=== PATIENT | female | born 1945 | race Caucasian/White ===

== ENCOUNTER → 2018-08-09 | Outpatient (CLI) | payer MEDICARE, OTHER | END | disposition home or self-care (01) | LOC: LAB SHORT 10:34 → LAB 10:34 | DX: N39.0 Urinary tract infection, site not specified (principal) | CPT/HCPCS: 87086 ==

== ENCOUNTER → 2020-07-04 | Outpatient (CLI) | payer MEDICARE, OTHER ==
[2020-07-04 14:40] LABS: Source, Urine Clean Catch
[2020-07-04 15:46] LABS: Appearance, Urine Clear (Clear); Bilirubin, Urine Neg (Neg); Blood, Urine Neg (Neg); Color, Urine Yellow (P-Yellow); Glucose Qualitative, Urine Neg (Neg); Ketones, Urine Neg (Neg); Leukocyte Esterase, Urine Neg (Neg); Nitrite, Urine Neg (Neg); Protein, Urine Neg (Neg); Specific Gravity, Urine 1.005 (1.003-1.022); Urobilinogen, Urine NORM (Normal)
== END | disposition home or self-care (01) ==
LOC: LAB SHORT 14:15 → LAB 14:15
PROVIDERS: Registered Nurse
DX: R53.82 Chronic fatigue, unspecified (principal); R68.89 Other general symptoms and signs
CPT/HCPCS: 81003

== ENCOUNTER 2022-03-31 10:59 | Emergency (ER) | payer MEDICARE, OTHER ==
[~2022-03-31] VITALS: Ht 167.6 cm; Wt 90.7 kg
[2022-03-31] MEDS ORDERED: Norco 5-325 Ta1 EACH PO (13:05)
[2022-04-02] MEDS ORDERED: LORA10ER PO (13:42)
== END 2022-03-31 13:23 | disposition home or self-care (01) ==
LOC: ER 10:59
DX: S82.852A Displaced trimalleolar fracture of left lower leg, initial encounter for closed fracture (principal); W01.0XXA Fall on same level from slipping, tripping and stumbling without subsequent striking against object, initial encounter; Z87.891 Personal history of nicotine dependence
CPT/HCPCS: 73610

== ENCOUNTER 2023-01-10 09:55 | Day surgery (SDC) | payer MEDICARE, OTHER ==
[~2023-01-10] VITALS: Ht 170.2 cm; Wt 91.3 kg
[~2023-01-10 09:55] MED LIST: LORA10ER PO; Norco 5-325 Ta1 EACH PO
[2023-01-10 11:44] VITALS: BP 128/63
== END 2023-01-10 11:47 | disposition home or self-care (01) ==
LOC: ORSCSDS 09:55
PROVIDERS: Specialist
PROC: 0DBN8ZX Excision of Sigmoid Colon, Via Natural or Artificial Opening Endoscopic, Diagnostic (ICD-10-PCS; principal; 2023-01-10 11:00)
DX: R19.4 Change in bowel habit (principal); Z80.0 Family history of malignant neoplasm of digestive organs; D12.5 Benign neoplasm of sigmoid colon; K57.30 Diverticulosis of large intestine without perforation or abscess without bleeding; K64.8 Other hemorrhoids; E78.5 Hyperlipidemia, unspecified; I48.91 Unspecified atrial fibrillation; K64.4 Residual hemorrhoidal skin tags
CPT/HCPCS: 88305; J2704; J7120

== ENCOUNTER → 2023-09-12 | Outpatient (CLI) | payer OTHER ==
[~2023-09-12] MED LIST changes: +ACET500 PO
[2023-09-12 15:54] LABS: BASOPHILS ABSOLUTE AUTO 0.01 K/mm3 (0.00-0.23); BASOPHILS PERCENT AUTO 0 % (0-2); EOSINOPHILS ABSOLUTE AUTO 0.03 K/mm3 (0.00-0.68); EOSINOPHILS PERCENT AUTO 1 % (0-6); Hematocrit 21.7 % (33.0-51.0); Hemoglobin 7.4 g/dL (11.5-16.0); IMMATURE GRAN ABSOLUTE AUTO 0.01 K/mm3 (0.00-0.10); IMMATURE GRAN PERCENT AUTO 0 % (0-1); LYMPHOCYTES ABSOLUTE AUTO 0.66 K/mm3 (0.84-5.20); LYMPHOCYTES PERCENT AUTO 30 % (21-46); MONOCYTES ABSOLUTE AUTO 0.07 K/mm3 (0.16-1.47); MONOCYTES PERCENT AUTO 3 % (4-13); Mean Corpuscular HGB 38.5 pg (26.0-34.0); Mean Corpuscular HGB Conc 34.1 g/dL (31.5-36.5); Mean Corpuscular Volume 113 fL (80-100); NEUTROPHILS ABSOLUTE AUTO 1.45 K/mm3 (1.96-9.15); NEUTROPHILS PERCENT AUTO 65 % (41-73); Platelet Count 112 K/mm3 (150-400); RDW Coefficient Variation 13.3 % (11.7-14.2); RDW Standard Deviation 52.9 fL (35.1-46.3); Red Blood Cell Count 1.92 M/mm3 (3.80-5.20); White Blood Cell Count 2.23 K/mm3 (4.00-11.30)
[2023-09-12 15:58] LABS: Alanine Aminotransfer (ALT/SGP 17 U/L (12-78); Albumin, Blood 3.7 g/dL (3.4-5.0); Albumin/Globulin Ratio 1.2 (0.8-1.8); Alk Phos 165 U/L (50-136); Anion Gap 7 mmol/L (3-11); Aspartate Aminotrans (AST/SGOT 11 U/L (12-37); Bilirubin, Total 0.7 mg/dL (0.1-1.0); Blood Urea Nitrogen 12 mg/dL (8-24); Bun/Creatinine Ratio 17.1 (12.0-20.0); CHOL/HDL RATIO 4.7; CO2, Blood 29 mmol/L (21-32); Calcium, Blood 8.9 mg/dL (8.5-10.1); Chloride, Blood 108 mmol/L (98-108); Cholesterol 206 mg/dL (50-200); Ferritin, Serum 446 ng/mL (8-252); Free Thyroxine 1.02 ng/dL (0.70-1.60); Globulin, Blood 3.2 g/dL (2.2-4.0); Glomerular Filtration Rate 90 (60-); Glucose, Blood 106 mg/dL (70-99); HDL Cholesterol 44 mg/dL (>39); Iron Serum 79 ug/dL (50-170); LDL/HDL RATIO 3.2; Low Density Lipoprotein Chol 141 mg/dL (0-110); Percent Saturation 30.6 % (15.0-50.0); Potassium, Blood 3.9 mmol/L (3.5-5.5); Sodium, Blood 140 mmol/L (136-145); Total Iron Binding Capacity 258 ug/dL (250-450); Total Protein, Blood 6.9 g/dL (6.4-8.2); Triglycerides 106 mg/dL (30-160); Very Low Density Lipoprot Chol 21 mg/dL (6-32)
== END ==
LOC: LAB 14:16 → LAB SHORT 14:16
PROVIDERS: Nurse Practitioner Family
DX: D61.818 Other pancytopenia (principal); E78.5 Hyperlipidemia, unspecified; I49.1 Atrial premature depolarization; D51.9 Vitamin B12 deficiency anemia, unspecified; R11.0 Nausea; R42 Dizziness and giddiness; R55 Syncope and collapse; R73.01 Impaired fasting glucose
CPT/HCPCS: 80053; 80061; 82607; 82728; 82746; 83036; 83540; 83550; 84439; 84443; 85025

== ENCOUNTER 2024-01-19 06:00 | Observation (INO) | payer OTHER ==
[~2024-01-19] VITALS: Ht 170.2 cm; Wt 87.4 kg
[2024-01-19] VITALS (15 sets, daily range): BP systolic 94–142; BP diastolic 45–75
[2024-01-19] MEDS ORDERED: NS 1,000 ML IV ONE ×2 (06:31→07:25)
[2024-01-19] MEDS ORDERED: Heparin Sodium 1000 Units/ML 10ML MDV ONE ×2 (06:31→06:56)
[2024-01-19] MEDS ORDERED: NS 500 ML IV ONE ×2 (06:31→06:55)
[2024-01-19] MEDS ORDERED: Florastor250 MG PO (06:35)
[2024-01-19] MEDS ORDERED: Lidocaine 2%-Epineph 1:100000 20 ML MDV ONE (06:42)
[2024-01-19] MEDS ORDERED: Midazolam HCl 1MG / ML 2ML Vial ONE ×2 (07:24→08:18)
[2024-01-19] MEDS ORDERED: CeFAZolin Sodium 2,000 MG VIAL ONE (07:24)
[2024-01-19] MEDS ORDERED: FentaNYL Citrate 50 MCG/ML 2 ML Injection ONE (07:25)
[2024-01-19] MEDS ORDERED: NS 100 ML IV ONE (07:25)
[2024-01-19] MEDS ORDERED: Metoprolol Tartrate 5 ML IV ONE ×2 (08:23→08:27)
[2024-01-19] MEDS ORDERED: Acetaminophen 500 MG Tab PO PRN (08:45)
--- NOTE | 2024-01-19 08:53 | NUR ---
PT RETURNED TO RECOVERY ROOM IN BED. RIGHT FEMORAL VEIN SITE SOFT NON-TENDER WITH NO HEMATOMA, NO BLEEDING WITH STOP COCK/SUTURES IN PLACE AND INTACT DRESSING. PT DENIES CHEST PAIN. CALL LIGHT IN REACH.
[2024-01-19] MEDS ORDERED: OxyCODONE 5 mg/Acetamin 325 mg TABLET PO PRN (08:55)
[2024-01-19] MEDS ORDERED: FLU VACC TS2024-25(6MOS UP)/PF 45 MCG/0.5 ML SYRINGE IM PRN (08:55)
[2024-01-19] MEDS ORDERED: Ondansetron HCl 2 MG / ML 2ML Vial IV PRN (08:55)
[2024-01-19] MEDS ORDERED: Acetaminophen/Codeine 300-30 mg PO PRN (08:55)
--- NOTE | 2024-01-19 09:33 | NUR ---
PT TRANSFERED TO PCU 16. PT STATES SHE HAD "CHEST ACHE." DR JORDAN INFORMED. NO CHANGES TO R FEM VEIN SITE. FULL REPORT PROVIED JOHN MOORE TO ASSUME CARE OF PT IN PCU 16.
--- NOTE | 2024-01-19 09:51 | NUR ---
[facility], transfered from stretcher to bed in PCU 16 with slide board, 4 staff members assisting. Pt denies pain, except for "tiny twinge" 1/10 in the upper left shoulder, states she gets this sometimes when she is hungry. Right femoral venous access noted with stopcock device intact, covered in tegederm . No bleeding, no bruising, no c/o pain at site. Distal pulses are palpable, capillary refill in toes and fingers is less than 3 seconds. Atrial fibrillation noted by bedside equipment monitor phototypesetting, 99-100 bpm. Blood pressure at this time is 99/58 (68). Pt was given food and drink at this time. BEd tipped in order to keep the right leg completely straight. Pt acknowledges need to not bend, twist or flex hips.
[2024-01-19] MEDS ORDERED: Digoxin 0.25 MG/ML 2ML Amp IV SCH ×2 (10:30→15:30)
--- NOTE | 2024-01-19 11:41 | NUR ---
Pt has been resting comfortably in bed, denies any pain, atrial fibrillation 90-115 bpm with variable blood pressure, MAP consistently greater than 65. Right groin site remains WNL with palpable distal pulses. Handoff report given to JOHN Mccracken.
--- NOTE | 2024-01-19 11:45 | NUR ---
ASSUMED CARE OF PT FROM JOHN MOORE. PT RESTING QUIETLY IN BED, REMINDED OF MD ORDERS TO LAY FLAT AND DO NOT BEND R LEG/HIP. PT VERALIZES UNDERSTANDING AND HAS NO COMPLAINTS AT THIS TIME, CALL LIGHT IN REACH. WILL CONTINUE TO MONITOR.
--- NOTE | 2024-01-19 12:11 | NUR ---
PT NOTED TO HAVE CONVERTED BACK TO NSR AFTER ONE VENTRICULAR PACED BEAT AT APROX 1211. DR JORDAN IN ROOM TO SEE PT, HE STATES HE WILL DISCONTINUE THE DIGOXIN AT THIS TIME. PT STATES SHE HAS NO NEEDS AT THIS TIME. DR JORDAN PROVIDED THIS RN EDUCATION ABOUT WIRELESS PACEMAKER PLACEMENT AND VENOUS SITE CARE. PT CAN BE OOB AT 1230, VENOUS SITE MAY OOZE OR BLEED A SMALL AMOUNT. IF SERIOUS BLEEDING OCCURS, RN TO HOLD PRESSURE AT SITE UNTIL RESOLVED. CALL DR JORDAN W ANY QUESTIONS OR CONCERNS. PT HAS CALL LIGHT IN REACH, WILL CONTINUE TO MONITOR.
[2024-01-19] MEDS ORDERED: CeFAZolin Sodium 2,000 MG in NS 100 ML IV SCH (16:00)
[2024-01-19] MEDS ORDERED: WATER FOR INJECTION STERILE IV SCH (16:00)
[2024-01-19] MEDS ORDERED: CEFAZOLIN SODIUM IV SCH (16:00)
--- NOTE | 2024-01-19 17:43 | NUR ---
NO ACUTE EVENTS SINCE LAST NOTE. PT HAS REMAINED IN SR, DENIES CHEST PAIN OR PRESSURE, R FEMORAL VEIN SITE WITH CLOSURE SUTURED IN PLACE AND MINIMAL BRB OZZING NOTED. PT HAS GOTTEN OOB TO USE RESTROOM AND SIT UP IN CHAIR IN ROOM, SITE HAS REMAINED STABLE. PT HAS BEEN A&OX4, ABLE TO MAKE NEEDS KNOWN AND USE CALL LIGHT APPROPRIATELY. WILL CONTINUE TO MONITOR AND GIVE REPORT TO NOC SHIFT RN.
[2024-01-20] VITALS (13 sets, daily range): BP systolic 115–143; BP diastolic 49–69
[2024-01-20 04:42] LABS: Hemoglobin 6.1 g/dL (11.5-16.0); Mean Corpuscular HGB 41.5 pg (26.0-34.0); Mean Corpuscular HGB Conc 35.3 g/dL (31.5-36.5); Mean Corpuscular Volume 118 fL (80-100); Mean Platelet Volume 9.6 fL (9.1-12.4); RDW Coefficient Variation 15.1 % (11.7-14.2); RDW Standard Deviation 63.1 fL (35.1-46.3); Red Blood Cell Count 1.47 M/mm3 (3.80-5.20); White Blood Cell Count 2.19 K/mm3 (4.00-11.30)
[2024-01-20 04:54] LABS: Hematocrit 17.3 % (33.0-51.0)
[2024-01-20 04:55] LABS: Platelet Count 49 K/mm3 (150-400)
[2024-01-20 04:59] LABS: Bun/Creatinine Ratio 20.1 (12.0-20.0); Calcium, Blood 8.7 mg/dL (8.5-10.1); Creatinine, Blood 0.75 mg/dL (0.40-1.00); Potassium, Blood 3.9 mmol/L (3.5-5.5)
--- NOTE | 2024-01-20 05:06 | NUR ---
CRITICAL VALUES THIS RN NOTIFIED OF CRITICAL LOW HcT 17.3 AND CRITICAL LOW PLATELETS OF 49. NOTED HgB 6.1 WELL. CALL PLACED TO DIET CONSULTANT DR. JORDAN WITH UPDATE PATIENT IS NOT A HOSPITALIST PATIENT. PROVIDER STATES "THESE ARE CHRONIC NUMBERS". NO NEW ORDERS RECEIVED AT THIS TIME. THIS RN UNABLE TO UPDATE DR. JORDAN WITH PATIENT'S SOFT BPs D/T PROVIDER PREFERENCE TO GO BACK TO SLEEP. SEE CHARTED VITALS, PATIENT PALE IN COLOR BUT OTHERWISE ASYMPTOMATIC.
--- NOTE | 2024-01-20 05:29 | NUR ---
SHIFT SUMMARY PATIENT ALERT, ORIENTED x4. ABLE TO MAKE NEEDS KNOWN TO STAFF. VERY PLEASANT AND COOPERATIVE WITH CARE. SOFT BPs, MAP >65. ON RA WITH SPO2 >90%. OCCASIONALLY PACED ON TELE, HR 60s DURING THE NIGHT. AMBULATING INTO BATHROOM, ADEQUATE OUTPUT. RIGHT GROIN SITE DRESSING C/D/I, NO SIGN OF HEMATOMA OR BLEEDING. SUPPLIES AT BEDSIDE FOR NURSE TECH FOR AM PROCEDURE. EKG COMPLETED. PACER INTERROGATION COMPLETED. NO OTHER CAHNGES SINCE PREVIOUS NOTE. WILL REPORT TO DAY SHIFT RN.
--- NOTE | 2024-01-20 07:47 | NUR ---
Dr. Keita at bedside. Removed pursestrings on R groin and replaced with steri strips and tegaderm. Pt okay for normal activity. Should follow up at cardiology clinic in a week, pt states she has an appointment on the . Followed up on the low H/H and platlet count with Dr. Keita. Pt asymptomatic for active bleed. Per Dr. Keita, pt will be transferred to Hospitalist care to review.
[2024-01-20 08:52] LABS: Percent Saturation 42.4 % (15.0-50.0)
[2024-01-20] MEDS ORDERED: NS 500 ML IV SCH (11:35)
--- NOTE | 2024-01-20 17:48 | NUR ---
SHIFT SUMMARY DR. MUJICA ORDERED 2 UNITS OF IRRADIATED PRBCS AFTER SPEAKING WITH PATIENTS ONCOLOGIST, . UNITS INFUSED, NO REACTION SUSPESTED. CBC REDRAWN POST INFUSION. NO ACUTE EVENTS DURING SHIFT. N AOX4, INDEPENDENT IN ROOM C SR ON TELE, NO NOTED EVENTS. BP IMPROVED POST INFUSIONS R RA, LUNGS CLEAR GI/ TOILITING IND. GOOD APPETITE S GROIN SITE CDI WITH TEGADERM AND STERI STRIPS LINES L PIV POTENTIAL DISCHARGE TONIGHT DEPENDING ON CBC RESULTS.
[2024-01-20 18:09] LABS: Hematocrit 24.7 % (33.0-51.0); Hemoglobin 8.9 g/dL (11.5-16.0)
== END 2024-01-20 19:00 | disposition home or self-care (01) ==
LOC: MHTC 06:00 → PCU 06:01
PROVIDERS: Internal Medicine; ADMIT Internal Medicine Cardiovascular Disease
DX: I44.1 Atrioventricular block, second degree (principal); C92.00 Acute myeloblastic leukemia, not having achieved remission; I48.0 Paroxysmal atrial fibrillation; I10 Essential (primary) hypertension; E78.5 Hyperlipidemia, unspecified; Z87.891 Personal history of nicotine dependence; Z88.1 Allergy status to other antibiotic agents; Z88.8 Allergy status to other drugs, medicaments and biological substances
CPT/HCPCS: 33274; 36415; 36430; 71046; 76937; 80048; 82728; 83540; 83550; 85014; 85018; 85027; 86850; 86900; 86901; 86923; 99152; 99153; A9270; C1769; C1786; C1894; J0690; J1160; J1644; J2250; J3010; J7030; J7040; P9016; Q9967

== ENCOUNTER 2024-04-09 03:38 | Day surgery (SDC) | payer OTHER ==
[~2024-04-09 03:38] MED LIST changes: +Florastor250 MG PO
[2024-04-09 11:39] VITALS: BP 151/62
[2024-04-09 12:07] LABS: Hematocrit 30.4 % (33.0-51.0); Hemoglobin 10.5 g/dL (11.5-16.0); Mean Corpuscular HGB 34.2 pg (26.0-34.0); Mean Corpuscular HGB Conc 34.5 g/dL (31.5-36.5); Mean Corpuscular Volume 99 fL (80-100); RDW Coefficient Variation 18.7 % (11.7-14.2); RDW Standard Deviation 67.7 fL (35.1-46.3); Red Blood Cell Count 3.07 M/mm3 (3.80-5.20); White Blood Cell Count 2.81 K/mm3 (4.00-11.30)
[2024-04-09 12:20] LABS: Bun/Creatinine Ratio 11.2 (12.0-20.0); Calcium, Blood 8.9 mg/dL (8.5-10.1); Creatinine, Blood 0.89 mg/dL (0.40-1.00); Potassium, Blood 3.7 mmol/L (3.5-5.5)
[2024-04-09 12:32] LABS: Platelet Count 21 K/mm3 (150-400)
[2024-04-09 12:57] LABS: BAND PERCENT MAN 3 % (0-8); BASOPHILS PERCENT MAN 0 % (0-2); EOSINOPHILS PERCENT MAN 0 % (0-6); LYMPHOCYTES ABSOLUTE MAN 0.36 K/mm3 (0.84-5.20); LYMPHOCYTES PERCENT MAN 13 % (21-46); MONOCYTES ABSOLUTE MAN 0.05 K/mm3 (0.16-1.47); MONOCYTES PERCENT MAN 2 % (4-13); NEUTROPHILS ABSOLUTE MAN 2.38 K/mm3 (1.96-9.15); SEG NEUTROPHILS PERCENT MAN 82 % (41-73); TOTAL CELLS COUNTED 100
--- NOTE | 2024-04-09 14:44 | NUR ---
Lab results from today faxed to Dr. Thomas's office.
[2024-04-12 10:32] LABS: Hematocrit 26.3 % (33.0-51.0); Hemoglobin 9.3 g/dL (11.5-16.0); Mean Corpuscular HGB 34.6 pg (26.0-34.0); Mean Corpuscular HGB Conc 35.4 g/dL (31.5-36.5); Mean Corpuscular Volume 98 fL (80-100); RDW Coefficient Variation 18.3 % (11.7-14.2); RDW Standard Deviation 64.5 fL (35.1-46.3); Red Blood Cell Count 2.69 M/mm3 (3.80-5.20); White Blood Cell Count 1.23 K/mm3 (4.00-11.30)
[2024-04-12 10:49] LABS: Platelet Count 4 K/mm3 (150-400)
[2024-04-12 11:32] LABS: Bun/Creatinine Ratio 13.6 (12.0-20.0); Calcium, Blood 9.4 mg/dL (8.5-10.1); Creatinine, Blood 0.81 mg/dL (0.40-1.00); Potassium, Blood 3.8 mmol/L (3.5-5.5)
[2024-04-12 11:40] LABS: BASOPHILS PERCENT MAN 0 % (0-2); EOSINOPHILS PERCENT MAN 0 % (0-6); LYMPHOCYTES % ATYPICAL MANUAL 3 % (0-0); LYMPHOCYTES PERCENT MAN 46 % (21-46); MONOCYTES ABSOLUTE MAN 0.04 K/mm3 (0.16-1.47); MONOCYTES PERCENT MAN 4 % (4-13); NEUTROPHILS ABSOLUTE MAN 0.57 K/mm3 (1.96-9.15); SEG NEUTROPHILS PERCENT MAN 47 % (41-73); TOTAL CELLS COUNTED 100
== END 2024-04-09 11:56 | disposition home or self-care (01) ==
LOC: ATC 03:38
PROVIDERS: Internal Medicine; Nurse Practitioner Family
DX: C92.00 Acute myeloblastic leukemia, not having achieved remission (principal); I48.0 Paroxysmal atrial fibrillation; E78.5 Hyperlipidemia, unspecified; Z87.891 Personal history of nicotine dependence; Z79.899 Other long term (current) drug therapy; Z88.1 Allergy status to other antibiotic agents; Z91.09 Other allergy status, other than to drugs and biological substances; Z95.0 Presence of cardiac pacemaker
CPT/HCPCS: 36592; 80048; 85025

== ENCOUNTER 2024-04-12 02:25 | Day surgery (SDC) | payer OTHER ==
[2024-04-12 10:02] VITALS: BP 140/63
== END 2024-04-12 10:06 | disposition home or self-care (01) ==
LOC: ATC 02:25
DX: C92.00 Acute myeloblastic leukemia, not having achieved remission (principal); I48.0 Paroxysmal atrial fibrillation; E78.5 Hyperlipidemia, unspecified; Z87.891 Personal history of nicotine dependence; Z88.1 Allergy status to other antibiotic agents; Z79.899 Other long term (current) drug therapy
CPT/HCPCS: 36592

== ENCOUNTER 2024-04-13 10:44 | Day surgery (SDC) | payer OTHER ==
[2024-04-13] MEDS ORDERED: NS 250 ML IV SCH (11:40)
[2024-04-13 14:45] VITALS: BP 118/95
[2024-04-13 15:15] VITALS: BP 129/74
[2024-04-13 16:08] VITALS: BP 129/74
[2024-04-13 16:28] VITALS: BP 140/79
[2024-04-13 17:11] VITALS: BP 141/76
== END 2024-04-13 17:18 | disposition home or self-care (01) ==
LOC: EDSTATUS 10:44 → ATC 10:44
DX: C92.00 Acute myeloblastic leukemia, not having achieved remission (principal); I48.0 Paroxysmal atrial fibrillation; E78.5 Hyperlipidemia, unspecified; I44.30 Unspecified atrioventricular block; Z87.891 Personal history of nicotine dependence; Z88.1 Allergy status to other antibiotic agents; Z79.899 Other long term (current) drug therapy; Z95.0 Presence of cardiac pacemaker
CPT/HCPCS: 36430; 86850; 86900; 86901; J7050; P9035

== ENCOUNTER 2024-04-16 03:41 | Day surgery (SDC) | payer OTHER ==
[2024-04-16 11:55] VITALS: BP 139/71
[2024-04-16 13:19] LABS: Hematocrit 22.8 % (33.0-51.0); Hemoglobin 8.2 g/dL (11.5-16.0); Mean Corpuscular HGB 34.3 pg (26.0-34.0); Mean Corpuscular Volume 95 fL (80-100); Mean Platelet Volume 11.1 fL (9.1-12.4); RDW Coefficient Variation 16.9 % (11.7-14.2); RDW Standard Deviation 57.9 fL (35.1-46.3); Red Blood Cell Count 2.39 M/mm3 (3.80-5.20)
[2024-04-16 13:23] LABS: BASOPHILS PERCENT AUTO 0 % (0-2); EOSINOPHILS PERCENT AUTO 0 % (0-6); IMMATURE GRAN PERCENT AUTO 0 % (0-1); LYMPHOCYTES ABSOLUTE AUTO 0.38 K/mm3 (0.84-5.20); LYMPHOCYTES PERCENT AUTO 88 % (21-46); MONOCYTES ABSOLUTE AUTO 0.01 K/mm3 (0.16-1.47); MONOCYTES PERCENT AUTO 2 % (4-13); NEUTROPHILS ABSOLUTE AUTO 0.04 K/mm3 (1.96-9.15); NEUTROPHILS PERCENT AUTO 9 % (41-73)
[2024-04-16 13:26] LABS: Platelet Count 24 K/mm3 (150-400)
[2024-04-16 13:27] LABS: White Blood Cell Count 0.43 K/mm3 (4.00-11.30)
[2024-04-16 13:54] LABS: Bun/Creatinine Ratio 13.8 (12.0-20.0); Calcium, Blood 9.1 mg/dL (8.5-10.1); Creatinine, Blood 0.58 mg/dL (0.40-1.00); Potassium, Blood 3.4 mmol/L (3.5-5.5)
== END 2024-04-16 12:31 | disposition home or self-care (01) ==
LOC: ATC 03:41
PROVIDERS: Internal Medicine
DX: C92.00 Acute myeloblastic leukemia, not having achieved remission (principal); E78.5 Hyperlipidemia, unspecified; I48.0 Paroxysmal atrial fibrillation; Z95.0 Presence of cardiac pacemaker; Z87.891 Personal history of nicotine dependence; Z79.899 Other long term (current) drug therapy; Z88.1 Allergy status to other antibiotic agents; Z91.09 Other allergy status, other than to drugs and biological substances
CPT/HCPCS: 36592; 80048; 85025

== ENCOUNTER 2024-04-21 06:19 | Day surgery (SDC) | payer OTHER ==
[2024-04-19 13:35] VITALS: BP 120/66
[2024-04-20 07:46] VITALS: BP 134/44
[2024-04-20 08:06] VITALS: BP 114/47
[2024-04-20 08:57] VITALS: BP 112/47
[2024-04-20 09:19] VITALS: BP 109/55
[2024-04-20 10:30] VITALS: BP 101/68
[~2024-04-21 06:19] MED LIST changes: +NS 250 ML IV SCH
[2024-04-21] MEDS ORDERED: NS 250 ML IV SCH (08:00)
[2024-04-21 09:51] VITALS: BP 114/57
[2024-04-21 10:09] VITALS: BP 102/90
[2024-04-21 11:10] VITALS: BP 104/60
== END 2024-04-21 11:25 | disposition home or self-care (01) ==
LOC: ATC 06:19
DX: C92.00 Acute myeloblastic leukemia, not having achieved remission (principal)
CPT/HCPCS: 36430; 36592; 86850; 86900; 86901; 86923; J7050; P9037; P9040

== ENCOUNTER 2024-04-24 07:15 | Day surgery (SDC) | payer OTHER ==
[2024-04-23 11:46] VITALS: BP 126/58
[2024-04-23 12:26] LABS: Hematocrit 24.6 % (33.0-51.0); Hemoglobin 8.9 g/dL (11.5-16.0); Mean Corpuscular HGB 33.2 pg (26.0-34.0); Mean Corpuscular HGB Conc 36.2 g/dL (31.5-36.5); Mean Corpuscular Volume 92 fL (80-100); RDW Coefficient Variation 15.6 % (11.7-14.2); RDW Standard Deviation 50.7 fL (35.1-46.3); Red Blood Cell Count 2.68 M/mm3 (3.80-5.20)
[2024-04-23 13:22] LABS: Bun/Creatinine Ratio 22.4 (12.0-20.0); Calcium, Blood 9.3 mg/dL (8.5-10.1); Creatinine, Blood 0.62 mg/dL (0.40-1.00)
[2024-04-23 13:23] LABS: BASOPHILS PERCENT AUTO 0 % (0-2); EOSINOPHILS PERCENT AUTO 0 % (0-6); IMMATURE GRAN PERCENT AUTO 0 % (0-1); LYMPHOCYTES ABSOLUTE AUTO 0.34 K/mm3 (0.84-5.20); LYMPHOCYTES PERCENT AUTO 97 % (21-46); MONOCYTES PERCENT AUTO 0 % (4-13); NEUTROPHILS ABSOLUTE AUTO 0.01 K/mm3 (1.96-9.15); NEUTROPHILS PERCENT AUTO 3 % (41-73)
[2024-04-23 13:28] LABS: Platelet Count 5 K/mm3 (150-400); White Blood Cell Count 0.35 K/mm3 (4.00-11.30)
[2024-04-24 08:52] VITALS: BP 122/58
[2024-04-24 09:47] VITALS: BP 112/59
[2024-04-24] MEDS ORDERED: VITAMIN D32000 UNIT PO (11:33)
[2024-04-24 11:34] VITALS: BP 119/55
[2024-04-24] MEDS ORDERED: NOXAFIL100 MG PO (11:34)
[2024-04-24] MEDS ORDERED: K-TAB ER20 ME1 PO (11:34)
[2024-04-24] MEDS ORDERED: OMEP20ER PO (11:35)
[2024-04-24] MEDS ORDERED: PROC5 PO (11:37)
== END 2024-04-24 11:20 | disposition home or self-care (01) ==
LOC: ATC 07:15
PROVIDERS: Internal Medicine
DX: C92.00 Acute myeloblastic leukemia, not having achieved remission (principal)
CPT/HCPCS: 36430; 36592; 80048; 85025; 86900; 86901; P9035

== ENCOUNTER 2024-04-29 06:48 | Day surgery (SDC) | payer OTHER ==
[2024-04-26 11:37] VITALS: BP 133/51
[2024-04-26 12:28] LABS: Hematocrit 20.6 % (33.0-51.0); Hemoglobin 7.5 g/dL (11.5-16.0); Mean Corpuscular HGB 33.6 pg (26.0-34.0); Mean Corpuscular HGB Conc 36.4 g/dL (31.5-36.5); Mean Corpuscular Volume 92 fL (80-100); RDW Coefficient Variation 14.7 % (11.7-14.2); RDW Standard Deviation 49.3 fL (35.1-46.3); Red Blood Cell Count 2.23 M/mm3 (3.80-5.20)
[2024-04-26 12:32] LABS: BASOPHILS PERCENT AUTO 0 % (0-2); EOSINOPHILS PERCENT AUTO 0 % (0-6); IMMATURE GRAN PERCENT AUTO 0 % (0-1); LYMPHOCYTES ABSOLUTE AUTO 0.24 K/mm3 (0.84-5.20); LYMPHOCYTES PERCENT AUTO 96 % (21-46); MONOCYTES PERCENT AUTO 0 % (4-13); NEUTROPHILS ABSOLUTE AUTO 0.01 K/mm3 (1.96-9.15); NEUTROPHILS PERCENT AUTO 4 % (41-73)
[2024-04-26 12:38] LABS: Platelet Count 16 K/mm3 (150-400); White Blood Cell Count 0.25 K/mm3 (4.00-11.30)
[2024-04-26 12:45] LABS: Bun/Creatinine Ratio 23.5 (12.0-20.0); Calcium, Blood 9.1 mg/dL (8.5-10.1); Creatinine, Blood 0.64 mg/dL (0.40-1.00); Potassium, Blood 2.9 mmol/L (3.5-5.5)
[2024-04-26 12:57] LABS: BASOPHILS PERCENT MAN 0 % (0-2); EOSINOPHILS PERCENT MAN 0 % (0-6); LYMPHOCYTES ABSOLUTE MAN 0.24 K/mm3 (0.84-5.20); LYMPHOCYTES PERCENT MAN 96 % (21-46); MONOCYTES ABSOLUTE MAN 0.01 K/mm3 (0.16-1.47); MONOCYTES PERCENT MAN 4 % (4-13); TOTAL CELLS COUNTED 25
[2024-04-29] VITALS (9 sets, daily range): BP systolic 108–124; BP diastolic 44–88
[~2024-04-29 06:48] MED LIST changes: +K-TAB ER20 ME1 PO; +NOXAFIL100 MG PO; -NS 250 ML IV SCH; +OMEP20ER PO; +PROC5 PO; +VITAMIN D32000 UNIT PO
[2024-04-29] MEDS ORDERED: NS 250 ML IV SCH (07:15)
== END 2024-04-29 18:05 | disposition home or self-care (01) ==
LOC: ATC 06:48
PROVIDERS: Internal Medicine
DX: C92.00 Acute myeloblastic leukemia, not having achieved remission (principal); I48.91 Unspecified atrial fibrillation; E78.5 Hyperlipidemia, unspecified; Z87.891 Personal history of nicotine dependence; Z88.1 Allergy status to other antibiotic agents; Z79.899 Other long term (current) drug therapy
CPT/HCPCS: 36430; 36592; 80048; 85025; 86850; 86900; 86901; 86923; J7050; P9037; P9040

== ENCOUNTER 2024-05-09 09:27 | Day surgery (SDC) | payer OTHER ==
[2024-05-08 14:24] VITALS: BP 131/45
[2024-05-09] VITALS (7 sets, daily range): BP systolic 106–124; BP diastolic 41–56
[~2024-05-09 09:27] MED LIST changes: +Acetaminophen 325 MG TABLET PO PRN; +DiphenhydrAMINE HCL 25 MG Cap PO PRN; +NS 250 ML IV SCH
== END 2024-05-09 18:35 | disposition home or self-care (01) ==
LOC: ATC 09:27
DX: C92.01 Acute myeloblastic leukemia, in remission (principal); I48.0 Paroxysmal atrial fibrillation; E78.5 Hyperlipidemia, unspecified; Z88.1 Allergy status to other antibiotic agents; Z79.899 Other long term (current) drug therapy; Z87.891 Personal history of nicotine dependence; Z95.0 Presence of cardiac pacemaker
CPT/HCPCS: 36430; 36592; 86850; 86900; 86901; 86923; A9270; J7050; P9037; P9040

== ENCOUNTER 2024-05-13 03:54 | Day surgery (SDC) | payer OTHER ==
[2024-05-13] VITALS (7 sets, daily range): BP systolic 114–136; BP diastolic 43–63
[~2024-05-13 03:54] MED LIST changes: -Acetaminophen 325 MG TABLET PO PRN; -DiphenhydrAMINE HCL 25 MG Cap PO PRN; -NS 250 ML IV SCH
[2024-05-13] MEDS ORDERED: DiphenhydrAMINE HCL 25 MG Cap PO SCH (06:40)
[2024-05-13] MEDS ORDERED: Acetaminophen 325 MG TABLET PO PRN (06:40)
[2024-05-13] MEDS ORDERED: NS 250 ML IV SCH (06:40)
== END 2024-05-13 16:46 | disposition home or self-care (01) ==
LOC: ATC 03:54
DX: C92.00 Acute myeloblastic leukemia, not having achieved remission (principal); I48.0 Paroxysmal atrial fibrillation; Z95.0 Presence of cardiac pacemaker; Z87.891 Personal history of nicotine dependence; Z88.1 Allergy status to other antibiotic agents; Z91.09 Other allergy status, other than to drugs and biological substances
CPT/HCPCS: 36415; 36430; 86850; 86900; 86901; 86923; A9270; J7050; P9016

== ENCOUNTER 2024-05-14 08:25 | Day surgery (SDC) | payer OTHER ==
[2024-05-14 11:20] VITALS: BP 138/69
[2024-05-14 11:26] LABS: BASOPHILS ABSOLUTE AUTO 0.01 K/mm3 (0.00-0.23); BASOPHILS PERCENT AUTO 1 % (0-2); Hematocrit 25.8 % (33.0-51.0); Hemoglobin 9.5 g/dL (11.5-16.0); LYMPHOCYTES ABSOLUTE AUTO 0.52 K/mm3 (0.84-5.20); LYMPHOCYTES PERCENT AUTO 47 % (21-46); MONOCYTES ABSOLUTE AUTO 0.08 K/mm3 (0.16-1.47); MONOCYTES PERCENT AUTO 7 % (4-13); Mean Corpuscular HGB 31.3 pg (26.0-34.0); Mean Corpuscular HGB Conc 36.8 g/dL (31.5-36.5); Mean Corpuscular Volume 85 fL (80-100); RDW Coefficient Variation 13.2 % (11.7-14.2); RDW Standard Deviation 41.1 fL (35.1-46.3); Red Blood Cell Count 3.04 M/mm3 (3.80-5.20); White Blood Cell Count 1.11 K/mm3 (4.00-11.30)
[2024-05-14 11:42] LABS: EOSINOPHILS PERCENT AUTO 0 % (0-6); IMMATURE GRAN ABSOLUTE AUTO 0.05 K/mm3 (0.00-0.10); IMMATURE GRAN PERCENT AUTO 5 % (0-1); NEUTROPHILS ABSOLUTE AUTO 0.45 K/mm3 (1.96-9.15); NEUTROPHILS PERCENT AUTO 41 % (41-73); Platelet Count 9 K/mm3 (150-400)
[2024-05-14 11:59] LABS: Bun/Creatinine Ratio 16.4 (12.0-20.0); Calcium, Blood 9.2 mg/dL (8.5-10.1); Creatinine, Blood 0.67 mg/dL (0.40-1.00); Potassium, Blood 3.8 mmol/L (3.5-5.5)
--- NOTE | 2024-05-14 13:44 | NUR ---
LAB RESULTS FROM TODAY FAXED TO DR. PELLETIER'S OFFICE.
== END 2024-05-14 11:30 | disposition home or self-care (01) ==
LOC: ATC 08:25
PROVIDERS: Internal Medicine
DX: C92.00 Acute myeloblastic leukemia, not having achieved remission (principal); I48.0 Paroxysmal atrial fibrillation; E78.5 Hyperlipidemia, unspecified; Z87.891 Personal history of nicotine dependence; Z88.1 Allergy status to other antibiotic agents; Z88.8 Allergy status to other drugs, medicaments and biological substances; Z79.899 Other long term (current) drug therapy
CPT/HCPCS: 36592; 80048; 81372; 85025; 86832

== ENCOUNTER 2024-05-17 02:30 | Day surgery (SDC) | payer OTHER ==
[2024-05-17 08:35] VITALS: BP 125/82
[2024-05-17 09:33] LABS: Hematocrit 24.5 % (33.0-51.0); Hemoglobin 8.7 g/dL (11.5-16.0); Mean Corpuscular HGB 30.5 pg (26.0-34.0); Mean Corpuscular HGB Conc 35.5 g/dL (31.5-36.5); Mean Corpuscular Volume 86 fL (80-100); Mean Platelet Volume 10.7 fL (9.1-12.4); RDW Coefficient Variation 13.1 % (11.7-14.2); RDW Standard Deviation 40.7 fL (35.1-46.3); Red Blood Cell Count 2.85 M/mm3 (3.80-5.20)
[2024-05-17 09:40] LABS: Platelet Count 13 K/mm3 (150-400)
[2024-05-17 09:48] LABS: Bun/Creatinine Ratio 16.9 (12.0-20.0); Calcium, Blood 8.9 mg/dL (8.5-10.1); Creatinine, Blood 0.71 mg/dL (0.40-1.00); Potassium, Blood 3.6 mmol/L (3.5-5.5)
[2024-05-17 10:46] LABS: BAND PERCENT MAN 20 % (0-8); BASOPHILS PERCENT MAN 0 % (0-2); EOSINOPHILS PERCENT MAN 0 % (0-6); LYMPHOCYTES ABSOLUTE MAN 0.67 K/mm3 (0.84-5.20); LYMPHOCYTES PERCENT MAN 26 % (21-46); MONOCYTES ABSOLUTE MAN 0.07 K/mm3 (0.16-1.47); MONOCYTES PERCENT MAN 3 % (4-13); NEUTROPHILS ABSOLUTE MAN 1.84 K/mm3 (1.96-9.15); SEG NEUTROPHILS PERCENT MAN 51 % (41-73); TOTAL CELLS COUNTED 100
[2024-05-19 14:50] VITALS: BP 121/54
[2024-05-19] MEDS ORDERED: NS 250 ML IV SCH (14:55)
[2024-05-19] MEDS ORDERED: DiphenhydrAMINE HCL 25 MG Cap PO PRN (14:55)
[2024-05-19] MEDS ORDERED: Acetaminophen 325 MG TABLET PO PRN (14:55)
[2024-05-19 15:10] VITALS: BP 125/54
== END 2024-05-17 23:00 | disposition home or self-care (01) ==
LOC: ATC 02:30
PROVIDERS: Internal Medicine
DX: C92.00 Acute myeloblastic leukemia, not having achieved remission (principal); I48.0 Paroxysmal atrial fibrillation; E78.5 Hyperlipidemia, unspecified; Z88.8 Allergy status to other drugs, medicaments and biological substances
CPT/HCPCS: 36592; 80048; 81372; 85025; 86832; 86900; 86901; A9270; J7050

== ENCOUNTER 2024-05-19 13:51 | Day surgery (SDC) | payer OTHER ==
[~2024-05-19 13:51] MED LIST changes: +Acetaminophen 325 MG TABLET PO SCH; +DiphenhydrAMINE HCL 25 MG Cap PO PRN; +NS 250 ML IV SCH
--- NOTE | 2024-05-19 16:00 | NUR ---
END TIME FOR PLATELETS. PTS V/S ARE 97.6, 62, 16, AND 125/54 LUNG SOUNDS CLEAR. NOT SURE WHAT HAPPENED TO TRANSFUSION RECORD.
--- NOTE | 2024-05-19 16:45 | NUR ---
ALL MEDICATIONS WERE GIVEN AT 1422. ALSO IV NS 250CC WAS ENDED AT 1600.
== END 2024-05-19 16:10 | disposition home or self-care (01) ==
LOC: ATC 13:51
DX: C92.00 Acute myeloblastic leukemia, not having achieved remission (principal); I48.0 Paroxysmal atrial fibrillation; E78.5 Hyperlipidemia, unspecified; Z88.8 Allergy status to other drugs, medicaments and biological substances
CPT/HCPCS: 36430; 86832; A9270; J7050; P9035

== ENCOUNTER 2024-05-21 00:11 | Day surgery (SDC) | payer OTHER ==
[~2024-05-21 00:11] MED LIST changes: -Acetaminophen 325 MG TABLET PO SCH; -DiphenhydrAMINE HCL 25 MG Cap PO PRN; -NS 250 ML IV SCH
[2024-05-21] MEDS ORDERED: NS 250 ML IV SCH (06:50)
[2024-05-21] MEDS ORDERED: Acetaminophen 325 MG TABLET PO SCH (15:40)
[2024-05-21] MEDS ORDERED: DiphenhydrAMINE HCL 25 MG Cap PO SCH (15:40)
[2024-05-21 17:07] VITALS: BP 128/61
[2024-05-21 17:15] VITALS: BP 109/57
[2024-05-21 18:15] VITALS: BP 112/63
[2024-05-21 19:10] LABS: BASOPHILS PERCENT AUTO 0 % (0-2); EOSINOPHILS ABSOLUTE AUTO 0.01 K/mm3 (0.00-0.68); EOSINOPHILS PERCENT AUTO 1 % (0-6); Hematocrit 18.2 % (33.0-51.0); Hemoglobin 6.4 g/dL (11.5-16.0); Mean Corpuscular HGB 30.8 pg (26.0-34.0); Mean Corpuscular HGB Conc 35.2 g/dL (31.5-36.5); Mean Corpuscular Volume 88 fL (80-100); Platelet Count 56 K/mm3 (150-400); RDW Coefficient Variation 12.5 % (11.7-14.2); RDW Standard Deviation 39.7 fL (35.1-46.3); Red Blood Cell Count 2.08 M/mm3 (3.80-5.20); White Blood Cell Count 1.36 K/mm3 (4.00-11.30)
[2024-05-21 19:14] LABS: IMMATURE GRAN ABSOLUTE AUTO 0.02 K/mm3 (0.00-0.10); IMMATURE GRAN PERCENT AUTO 2 % (0-1); LYMPHOCYTES PERCENT AUTO 52 % (21-46); MONOCYTES ABSOLUTE AUTO 0.18 K/mm3 (0.16-1.47); MONOCYTES PERCENT AUTO 13 % (4-13); NEUTROPHILS ABSOLUTE AUTO 0.45 K/mm3 (1.96-9.15); NEUTROPHILS PERCENT AUTO 33 % (41-73)
[2024-05-21 19:27] LABS: Bun/Creatinine Ratio 17.1 (12.0-20.0); Calcium, Blood 8.7 mg/dL (8.5-10.1); Creatinine, Blood 0.64 mg/dL (0.40-1.00); Potassium, Blood 3.7 mmol/L (3.5-5.5)
== END 2024-05-21 23:00 | disposition home or self-care (01) ==
LOC: ATC 00:11
PROVIDERS: Internal Medicine
DX: C92.00 Acute myeloblastic leukemia, not having achieved remission (principal); I48.0 Paroxysmal atrial fibrillation; E78.5 Hyperlipidemia, unspecified; Z95.0 Presence of cardiac pacemaker; Z88.1 Allergy status to other antibiotic agents; Z91.09 Other allergy status, other than to drugs and biological substances; Z79.899 Other long term (current) drug therapy; Z87.891 Personal history of nicotine dependence
CPT/HCPCS: 36430; 80048; 85025; 86900; 86901; A9270; J7050; P9052

== ENCOUNTER 2024-05-26 02:57 | Day surgery (SDC) | payer OTHER ==
[2024-05-23 09:27] VITALS: BP 135/47
[2024-05-23 10:31] LABS: Hematocrit 20.6 % (33.0-51.0); Hemoglobin 7.3 g/dL (11.5-16.0); Mean Corpuscular HGB 30.9 pg (26.0-34.0); Mean Corpuscular HGB Conc 35.4 g/dL (31.5-36.5); Mean Corpuscular Volume 87 fL (80-100); Mean Platelet Volume 10.5 fL (9.1-12.4); RDW Coefficient Variation 12.8 % (11.7-14.2); RDW Standard Deviation 40.4 fL (35.1-46.3); Red Blood Cell Count 2.36 M/mm3 (3.80-5.20); White Blood Cell Count 5.25 K/mm3 (4.00-11.30)
[2024-05-23 10:50] LABS: Platelet Count 38 K/mm3 (150-400)
[2024-05-23 10:57] LABS: Albumin, Blood 3.3 g/dL (3.4-5.0); Bilirubin, Total 0.8 mg/dL (0.1-1.0); Bun/Creatinine Ratio 14.3 (12.0-20.0); Creatinine, Blood 0.7 mg/dL (0.40-1.00); Globulin, Blood 3.2 g/dL (2.2-4.0); Potassium, Blood 3.3 mmol/L (3.5-5.5); Total Protein, Blood 6.5 g/dL (6.4-8.2)
[2024-05-23 11:25] LABS: BAND PERCENT MAN 17 % (0-8); BASOPHILS PERCENT MAN 0 % (0-2); EOSINOPHILS PERCENT MAN 0 % (0-6); LYMPHOCYTES ABSOLUTE MAN 0.47 K/mm3 (0.84-5.20); LYMPHOCYTES PERCENT MAN 9 % (21-46); METAMYELOCYTE ABSOLUTE MAN 0.05 K/mm3 (0.00-0.00); METAMYELOCYTE PERCENT MAN 1 % (0-0); MONOCYTES ABSOLUTE MAN 0.26 K/mm3 (0.16-1.47); MONOCYTES PERCENT MAN 5 % (4-13); NEUTROPHILS ABSOLUTE MAN 4.46 K/mm3 (1.96-9.15); SEG NEUTROPHILS PERCENT MAN 68 % (41-73); TOTAL CELLS COUNTED 100
[2024-05-26] MEDS ORDERED: Acetaminophen 325 MG TABLET PO SCH (07:05)
[2024-05-26] MEDS ORDERED: DiphenhydrAMINE HCL 25 MG Cap PO SCH (07:05)
[2024-05-26] MEDS ORDERED: NS 250 ML IV SCH (07:05)
[2024-05-26 13:51] VITALS: BP 119/52
[2024-05-26 14:05] VITALS: BP 115/58
[2024-05-26 14:29] VITALS: BP 117/50
[2024-05-26 14:55] VITALS: BP 110/56
[2024-05-26 15:10] VITALS: BP 112/58
== END 2024-05-26 15:20 | disposition home or self-care (01) ==
LOC: ATC 02:57
PROVIDERS: Internal Medicine
DX: C92.01 Acute myeloblastic leukemia, in remission (principal); I48.0 Paroxysmal atrial fibrillation; E78.5 Hyperlipidemia, unspecified; Z87.891 Personal history of nicotine dependence; Z88.8 Allergy status to other drugs, medicaments and biological substances
CPT/HCPCS: 36430; 36592; 80053; 85025; 86900; 86901; A9270; J7050; P9052

== ENCOUNTER 2024-09-20 02:52 | Day surgery (SDC) | payer OTHER ==
[2024-09-20 10:41] VITALS: BP 123/72
[2024-09-20 11:09] LABS: BASOPHILS ABSOLUTE AUTO 0.01 K/mm3 (0.00-0.23); BASOPHILS PERCENT AUTO 0 % (0-2); EOSINOPHILS ABSOLUTE AUTO 0.01 K/mm3 (0.00-0.68); EOSINOPHILS PERCENT AUTO 0 % (0-6); Hematocrit 34.3 % (33.0-51.0); IMMATURE GRAN ABSOLUTE AUTO 0.04 K/mm3 (0.00-0.10); IMMATURE GRAN PERCENT AUTO 1 % (0-1); LYMPHOCYTES PERCENT AUTO 10 % (21-46); MONOCYTES ABSOLUTE AUTO 0.36 K/mm3 (0.16-1.47); MONOCYTES PERCENT AUTO 12 % (4-13); Mean Corpuscular HGB 39.3 pg (26.0-34.0); Mean Corpuscular Volume 113 fL (80-100); Mean Platelet Volume 11.6 fL (9.1-12.4); NEUTROPHILS ABSOLUTE AUTO 2.35 K/mm3 (1.96-9.15); NEUTROPHILS PERCENT AUTO 77 % (41-73); RDW Coefficient Variation 17.7 % (11.7-14.2); RDW Standard Deviation 72.7 fL (35.1-46.3); Red Blood Cell Count 3.05 M/mm3 (3.80-5.20); White Blood Cell Count 3.07 K/mm3 (4.00-11.30)
[2024-09-20 11:23] LABS: Platelet Count 35 K/mm3 (150-400)
[2024-09-20 11:28] LABS: Albumin, Blood 3.2 g/dL (3.4-5.0); Albumin/Globulin Ratio 1.4 (0.8-1.8); Bilirubin, Total 0.7 mg/dL (0.1-1.0); Calcium, Blood 8.8 mg/dL (8.5-10.1); Creatinine, Blood 0.67 mg/dL (0.40-1.00); Globulin, Blood 2.3 g/dL (2.2-4.0); Magnesium, Blood 1.7 mg/dL (1.6-2.4); Potassium, Blood 3.6 mmol/L (3.5-5.5); Total Protein, Blood 5.5 g/dL (6.4-8.2)
[2024-09-22 08:31] LABS: TACROLIMUS BY HPLC-MS/MS 5.2 ng/mL
== END 2024-09-20 10:51 | disposition home or self-care (01) ==
LOC: ATC 02:52
PROVIDERS: Internal Medicine Hematology & Oncology
DX: C92.00 Acute myeloblastic leukemia, not having achieved remission (principal); D61.818 Other pancytopenia; I44.30 Unspecified atrioventricular block; I48.0 Paroxysmal atrial fibrillation; E78.5 Hyperlipidemia, unspecified; Z87.891 Personal history of nicotine dependence; Z79.899 Other long term (current) drug therapy; Z88.1 Allergy status to other antibiotic agents; Z91.048 Other nonmedicinal substance allergy status; Z95.0 Presence of cardiac pacemaker
CPT/HCPCS: 36592; 80053; 80197; 83615; 83735; 85025

== ENCOUNTER 2024-09-27 03:51 | Day surgery (SDC) | payer OTHER ==
[2024-09-27 16:39] VITALS: BP 114/63
[2024-09-27 16:50] LABS: BASOPHILS ABSOLUTE AUTO 0.01 K/mm3 (0.00-0.23); BASOPHILS PERCENT AUTO 0 % (0-2); EOSINOPHILS ABSOLUTE AUTO 0.00 K/mm3 (0.00-0.68); EOSINOPHILS PERCENT AUTO 0 % (0-6); Hematocrit 34.3 % (33.0-51.0); Hemoglobin 12.0 g/dL (11.5-16.0); IMMATURE GRAN ABSOLUTE AUTO 0.06 K/mm3 (0.00-0.10); IMMATURE GRAN PERCENT AUTO 2 % (0-1); LYMPHOCYTES ABSOLUTE AUTO 0.23 K/mm3 (0.84-5.20); LYMPHOCYTES PERCENT AUTO 6 % (21-46); MONOCYTES ABSOLUTE AUTO 0.40 K/mm3 (0.16-1.47); MONOCYTES PERCENT AUTO 11 % (4-13); Mean Corpuscular HGB Conc 35.0 g/dL (31.5-36.5); Mean Corpuscular Volume 115 fL (80-100); NEUTROPHILS ABSOLUTE AUTO 2.94 K/mm3 (1.96-9.15); NEUTROPHILS PERCENT AUTO 81 % (41-73); NRBC ABSOLUTE 0.00 K/mm3 (0.00-0.02); NRBC Auto 0.0 /100 WBC (0.0-0.2); RDW Coefficient Variation 17.7 % (11.7-14.2); RDW Standard Deviation 74.9 fL (35.1-46.3)
[2024-09-27 17:16] LABS: Platelet Count 37 K/mm3 (150-400)
[2024-09-27 17:17] LABS: Alanine Aminotransfer (ALT/SGP 20.0 U/L (12-78); Albumin, Blood 3.2 g/dL (3.4-5.0); Albumin/Globulin Ratio 1.3 (0.8-1.8); Anion Gap 7.0 mmol/L (3-11); Aspartate Aminotrans (AST/SGOT 13.0 U/L (12-37); Bilirubin, Total 0.5 mg/dL (0.1-1.0); Blood Urea Nitrogen 19.0 mg/dL (8-24); CO2, Blood 28.0 mmol/L (21-32); Calcium, Blood 8.9 mg/dL (8.5-10.1); Chloride, Blood 106.0 mmol/L (98-108); Creatinine, Blood 0.76 mg/dL (0.40-1.00); Globulin, Blood 2.5 g/dL (2.2-4.0); Glucose, Blood 237.0 mg/dL (70-99); Lactate Dehydrogenase (Ld),Bld 321.0 U/L (100-240); Magnesium, Blood 1.5 mg/dL (1.6-2.4); Potassium, Blood 3.6 mmol/L (3.5-5.5); Sodium, Blood 137.0 mmol/L (136-145); Total Protein, Blood 5.7 g/dL (6.4-8.2)
[2024-10-01 16:28] LABS: TACROLIMUS BY HPLC-MS/MS 6.0 ng/mL
== END 2024-09-27 16:56 | disposition home or self-care (01) ==
LOC: ATC 03:51
PROVIDERS: Internal Medicine Hematology & Oncology
DX: C92.00 Acute myeloblastic leukemia, not having achieved remission (principal); D61.818 Other pancytopenia; I48.0 Paroxysmal atrial fibrillation; E78.5 Hyperlipidemia, unspecified; Z95.0 Presence of cardiac pacemaker; Z87.891 Personal history of nicotine dependence; Z79.899 Other long term (current) drug therapy; Z88.1 Allergy status to other antibiotic agents; Z91.09 Other allergy status, other than to drugs and biological substances; Z98.51 Tubal ligation status
CPT/HCPCS: 36592; 80053; 80197; 83615; 83735; 85025

== ENCOUNTER 2024-10-04 01:33 | Day surgery (SDC) | payer OTHER ==
[2024-10-04 09:35] VITALS: BP 129/71
[2024-10-04 10:21] LABS: BASOPHILS ABSOLUTE AUTO 0.01 K/mm3 (0.00-0.23); BASOPHILS PERCENT AUTO 0 % (0-2); EOSINOPHILS ABSOLUTE AUTO 0.02 K/mm3 (0.00-0.68); EOSINOPHILS PERCENT AUTO 1 % (0-6); Hematocrit 31.9 % (33.0-51.0); Hemoglobin 11.3 g/dL (11.5-16.0); IMMATURE GRAN ABSOLUTE AUTO 0.06 K/mm3 (0.00-0.10); IMMATURE GRAN PERCENT AUTO 2 % (0-1); LYMPHOCYTES ABSOLUTE AUTO 0.32 K/mm3 (0.84-5.20); LYMPHOCYTES PERCENT AUTO 10 % (21-46); MONOCYTES ABSOLUTE AUTO 0.54 K/mm3 (0.16-1.47); MONOCYTES PERCENT AUTO 16 % (4-13); Mean Corpuscular HGB Conc 35.4 g/dL (31.5-36.5); Mean Corpuscular Volume 114 fL (80-100); NEUTROPHILS ABSOLUTE AUTO 2.43 K/mm3 (1.96-9.15); NEUTROPHILS PERCENT AUTO 72 % (41-73); NRBC ABSOLUTE 0.00 K/mm3 (0.00-0.02); NRBC Auto 0.0 /100 WBC (0.0-0.2); RDW Coefficient Variation 17.4 % (11.7-14.2); RDW Standard Deviation 74.0 fL (35.1-46.3)
[2024-10-04 10:34] LABS: Platelet Count 35 K/mm3 (150-400)
[2024-10-04 10:41] LABS: Alanine Aminotransfer (ALT/SGP 16.0 U/L (12-78); Albumin, Blood 3.1 g/dL (3.4-5.0); Albumin/Globulin Ratio 1.3 (0.8-1.8); Anion Gap 10.0 mmol/L (3-11); Aspartate Aminotrans (AST/SGOT 16.0 U/L (12-37); Bilirubin, Total 0.6 mg/dL (0.1-1.0); Blood Urea Nitrogen 15.0 mg/dL (8-24); CO2, Blood 28.0 mmol/L (21-32); Calcium, Blood 9.1 mg/dL (8.5-10.1); Chloride, Blood 105.0 mmol/L (98-108); Creatinine, Blood 0.68 mg/dL (0.40-1.00); Globulin, Blood 2.4 g/dL (2.2-4.0); Glucose, Blood 92.0 mg/dL (70-99); Lactate Dehydrogenase (Ld),Bld 260.0 U/L (100-240); Magnesium, Blood 1.6 mg/dL (1.6-2.4); Potassium, Blood 3.7 mmol/L (3.5-5.5); Sodium, Blood 139.0 mmol/L (136-145); Total Protein, Blood 5.5 g/dL (6.4-8.2)
[2024-10-06 14:59] LABS: TACROLIMUS BY HPLC-MS/MS 7.4 ng/mL
== END 2024-10-04 10:07 | disposition home or self-care (01) ==
LOC: ATC 01:33
PROVIDERS: Internal Medicine Hematology & Oncology
DX: C92.00 Acute myeloblastic leukemia, not having achieved remission (principal); D61.818 Other pancytopenia; I44.30 Unspecified atrioventricular block; I48.0 Paroxysmal atrial fibrillation; E78.5 Hyperlipidemia, unspecified; J30.1 Allergic rhinitis due to pollen; Z87.891 Personal history of nicotine dependence; Z79.899 Other long term (current) drug therapy; Z88.1 Allergy status to other antibiotic agents; Z95.0 Presence of cardiac pacemaker
CPT/HCPCS: 36592; 80053; 80197; 83615; 83735; 85025

== ENCOUNTER 2024-10-11 02:03 | Day surgery (SDC) | payer OTHER ==
[2024-10-11 09:34] VITALS: BP 141/83
[2024-10-11] MEDS ORDERED: PRED5 PO (09:44)
[2024-10-11] MEDS ORDERED: Prednisone10 MG PO (09:45)
[2024-10-11 10:39] LABS: BASOPHILS ABSOLUTE AUTO 0.01 K/mm3 (0.00-0.23); BASOPHILS PERCENT AUTO 0 % (0-2); EOSINOPHILS ABSOLUTE AUTO 0.02 K/mm3 (0.00-0.68); EOSINOPHILS PERCENT AUTO 1 % (0-6); Hematocrit 32.7 % (33.0-51.0); Hemoglobin 11.7 g/dL (11.5-16.0); IMMATURE GRAN ABSOLUTE AUTO 0.05 K/mm3 (0.00-0.10); IMMATURE GRAN PERCENT AUTO 2 % (0-1); LYMPHOCYTES ABSOLUTE AUTO 0.28 K/mm3 (0.84-5.20); LYMPHOCYTES PERCENT AUTO 9 % (21-46); MONOCYTES ABSOLUTE AUTO 0.53 K/mm3 (0.16-1.47); MONOCYTES PERCENT AUTO 18 % (4-13); Mean Corpuscular HGB Conc 35.8 g/dL (31.5-36.5); Mean Corpuscular Volume 113 fL (80-100); NEUTROPHILS ABSOLUTE AUTO 2.09 K/mm3 (1.96-9.15); NEUTROPHILS PERCENT AUTO 70 % (41-73); NRBC ABSOLUTE 0.00 K/mm3 (0.00-0.02); NRBC Auto 0.0 /100 WBC (0.0-0.2); RDW Coefficient Variation 17.1 % (11.7-14.2); RDW Standard Deviation 70.6 fL (35.1-46.3)
[2024-10-11 10:42] LABS: Platelet Count 40 K/mm3 (150-400)
[2024-10-11 11:02] LABS: Alanine Aminotransfer (ALT/SGP 16.0 U/L (12-78); Albumin, Blood 3.2 g/dL (3.4-5.0); Albumin/Globulin Ratio 1.2 (0.8-1.8); Anion Gap 8.0 mmol/L (3-11); Aspartate Aminotrans (AST/SGOT 15.0 U/L (12-37); Bilirubin, Total 1.0 mg/dL (0.1-1.0); Blood Urea Nitrogen 17.0 mg/dL (8-24); CO2, Blood 27.0 mmol/L (21-32); Calcium, Blood 9.1 mg/dL (8.5-10.1); Chloride, Blood 107.0 mmol/L (98-108); Creatinine, Blood 0.82 mg/dL (0.40-1.00); Globulin, Blood 2.6 g/dL (2.2-4.0); Glucose, Blood 97.0 mg/dL (70-99); Lactate Dehydrogenase (Ld),Bld 256.0 U/L (100-240); Magnesium, Blood 1.5 mg/dL (1.6-2.4); Potassium, Blood 3.7 mmol/L (3.5-5.5); Sodium, Blood 138.0 mmol/L (136-145); Total Protein, Blood 5.8 g/dL (6.4-8.2)
[2024-10-13 10:00] LABS: TACROLIMUS BY HPLC-MS/MS 7.1 ng/mL
== END 2024-10-11 09:55 | disposition home or self-care (01) ==
LOC: ATC 02:03
PROVIDERS: Internal Medicine Hematology & Oncology
DX: C92.00 Acute myeloblastic leukemia, not having achieved remission (principal); D61.818 Other pancytopenia; I48.0 Paroxysmal atrial fibrillation; E78.5 Hyperlipidemia, unspecified; Z87.891 Personal history of nicotine dependence; Z88.1 Allergy status to other antibiotic agents; Z95.0 Presence of cardiac pacemaker
CPT/HCPCS: 36592; 80053; 80197; 83615; 83735; 85025

== ENCOUNTER 2024-10-18 03:07 | Day surgery (SDC) | payer OTHER ==
[~2024-10-18 03:07] MED LIST changes: +PRED5 PO; +Prednisone10 MG PO
[2024-10-18 11:42] VITALS: BP 115/81
[2024-10-18 12:36] LABS: BASOPHILS ABSOLUTE AUTO 0.02 K/mm3 (0.00-0.23); BASOPHILS PERCENT AUTO 1 % (0-2); EOSINOPHILS ABSOLUTE AUTO 0.02 K/mm3 (0.00-0.68); EOSINOPHILS PERCENT AUTO 1 % (0-6); Hematocrit 30.7 % (33.0-51.0); Hemoglobin 10.8 g/dL (11.5-16.0); IMMATURE GRAN ABSOLUTE AUTO 0.03 K/mm3 (0.00-0.10); IMMATURE GRAN PERCENT AUTO 1 % (0-1); LYMPHOCYTES ABSOLUTE AUTO 0.31 K/mm3 (0.84-5.20); LYMPHOCYTES PERCENT AUTO 8 % (21-46); MONOCYTES ABSOLUTE AUTO 0.61 K/mm3 (0.16-1.47); MONOCYTES PERCENT AUTO 16 % (4-13); Mean Corpuscular HGB Conc 35.2 g/dL (31.5-36.5); Mean Corpuscular Volume 115 fL (80-100); NEUTROPHILS ABSOLUTE AUTO 2.86 K/mm3 (1.96-9.15); NEUTROPHILS PERCENT AUTO 74 % (41-73); NRBC ABSOLUTE 0.00 K/mm3 (0.00-0.02); NRBC Auto 0.0 /100 WBC (0.0-0.2); RDW Coefficient Variation 16.5 % (11.7-14.2); RDW Standard Deviation 69.0 fL (35.1-46.3)
[2024-10-18 12:50] LABS: Platelet Count 48 K/mm3 (150-400)
[2024-10-18 12:54] LABS: Alanine Aminotransfer (ALT/SGP 14.0 U/L (12-78); Albumin, Blood 3.1 g/dL (3.4-5.0); Albumin/Globulin Ratio 1.3 (0.8-1.8); Anion Gap 8.0 mmol/L (3-11); Aspartate Aminotrans (AST/SGOT 14.0 U/L (12-37); Bilirubin, Total 0.8 mg/dL (0.1-1.0); Blood Urea Nitrogen 18.0 mg/dL (8-24); CO2, Blood 27.0 mmol/L (21-32); Calcium, Blood 8.9 mg/dL (8.5-10.1); Chloride, Blood 105.0 mmol/L (98-108); Creatinine, Blood 0.65 mg/dL (0.40-1.00); Globulin, Blood 2.4 g/dL (2.2-4.0); Glucose, Blood 167.0 mg/dL (70-99); Lactate Dehydrogenase (Ld),Bld 234.0 U/L (100-240); Potassium, Blood 3.3 mmol/L (3.5-5.5); Sodium, Blood 137.0 mmol/L (136-145); Total Protein, Blood 5.5 g/dL (6.4-8.2)
[2024-10-18 12:55] LABS: Magnesium, Blood 1.1 mg/dL (1.6-2.4)
[2024-10-20 09:20] LABS: TACROLIMUS BY HPLC-MS/MS 3.3 ng/mL
== END 2024-10-18 12:11 | disposition home or self-care (01) ==
LOC: ATC 03:07
PROVIDERS: Internal Medicine Hematology & Oncology
DX: C92.00 Acute myeloblastic leukemia, not having achieved remission (principal); D61.818 Other pancytopenia; Z88.1 Allergy status to other antibiotic agents; Z79.899 Other long term (current) drug therapy; Z87.891 Personal history of nicotine dependence
CPT/HCPCS: 36592; 80053; 80197; 83615; 83735; 85025

== ENCOUNTER 2024-10-22 19:08 | Emergency (ER) | payer OTHER ==
[~2024-10-22] VITALS: Ht 170.2 cm; Wt 60.3 kg
[2024-10-22 19:46] LABS: BASOPHILS ABSOLUTE AUTO 0.02 K/mm3 (0.00-0.23); BASOPHILS PERCENT AUTO 1 % (0-2); EOSINOPHILS ABSOLUTE AUTO 0.02 K/mm3 (0.00-0.68); EOSINOPHILS PERCENT AUTO 1 % (0-6); Hematocrit 30.2 % (33.0-51.0); Hemoglobin 10.7 g/dL (11.5-16.0); IMMATURE GRAN ABSOLUTE AUTO 0.01 K/mm3 (0.00-0.10); IMMATURE GRAN PERCENT AUTO 0 % (0-1); LYMPHOCYTES ABSOLUTE AUTO 0.37 K/mm3 (0.84-5.20); LYMPHOCYTES PERCENT AUTO 11 % (21-46); MONOCYTES ABSOLUTE AUTO 0.50 K/mm3 (0.16-1.47); MONOCYTES PERCENT AUTO 15 % (4-13); Mean Corpuscular HGB Conc 35.4 g/dL (31.5-36.5); Mean Corpuscular Volume 116 fL (80-100); NEUTROPHILS ABSOLUTE AUTO 2.44 K/mm3 (1.96-9.15); NEUTROPHILS PERCENT AUTO 73 % (41-73); NRBC ABSOLUTE 0.00 K/mm3 (0.00-0.02); NRBC Auto 0.0 /100 WBC (0.0-0.2); RDW Coefficient Variation 16.0 % (11.7-14.2); RDW Standard Deviation 68.9 fL (35.1-46.3)
[2024-10-22 19:52] LABS: Platelet Count 49 K/mm3 (150-400)
[2024-10-22 20:11] LABS: Alanine Aminotransfer (ALT/SGP 13.0 U/L (12-78); Albumin, Blood 3.0 g/dL (3.4-5.0); Albumin/Globulin Ratio 1.3 (0.8-1.8); Anion Gap 5.0 mmol/L (3-11); Aspartate Aminotrans (AST/SGOT 13.0 U/L (12-37); Bilirubin, Total 1.0 mg/dL (0.1-1.0); Blood Urea Nitrogen 14.0 mg/dL (8-24); CO2, Blood 28.0 mmol/L (21-32); Calcium, Blood 8.5 mg/dL (8.5-10.1); Chloride, Blood 108.0 mmol/L (98-108); Creatinine, Blood 0.56 mg/dL (0.40-1.00); Globulin, Blood 2.3 g/dL (2.2-4.0); Glucose, Blood 131.0 mg/dL (70-99); Potassium, Blood 3.2 mmol/L (3.5-5.5); Sodium, Blood 138.0 mmol/L (136-145); Total Protein, Blood 5.3 g/dL (6.4-8.2)
[2024-10-23 00:39] LABS: Source, Urine Clean Catch
[2024-10-23 00:43] LABS: Glucose Qualitative, Urine Neg (Neg); Ketones, Urine Neg (Neg); Leukocyte Esterase, Urine 1+ (Neg); Protein, Urine 2+ (Neg); Specific Gravity, Urine 1.025 (1.003-1.022); Urobilinogen, Urine 1+ (Normal)
[2024-10-23 00:45] LABS: Bilirubin, Urine 1+ (Neg); Color, Urine Amber (P-Yellow)
[2024-10-23] MEDS ORDERED: PROGRAF PO (00:46)
[2024-10-23] MEDS ORDERED: PROGRAF0.510 PO (00:46)
[2024-10-23 01:00] VITALS: BP 124/65
[2024-10-23] MEDS ORDERED: beclomethasone (01:14)
[2024-10-23] MEDS ORDERED: ACYC800 PO (01:15)
[2024-10-23] MEDS ORDERED: PREVYMIS480 MG PO (01:16)
[2024-10-23] MEDS ORDERED: ATOVAQUONE750 MG/51 PO (01:16)
[2024-10-23] MEDS ORDERED: SUCR1 PO (01:17)
[2024-10-23] MEDS ORDERED: FOLI1 PO (01:18)
[2024-10-23] MEDS ORDERED: MIRT15 PO (01:18)
[2024-10-23] MEDS ORDERED: GRANISETRON HCL PO (01:18)
[2024-10-23] MEDS ORDERED: OLAN5 PO (01:19)
== END 2024-10-23 02:09 | disposition home or self-care (01) ==
LOC: ER 19:08
PROVIDERS: Student in an Organized Health Care Education/Training Program
DX: R41.0 Disorientation, unspecified (principal); Z94.81 Bone marrow transplant status; Z87.891 Personal history of nicotine dependence; Z79.899 Other long term (current) drug therapy
CPT/HCPCS: 70450; 80053; 81001; 85025; 87086; 99285-25; A9270

== ENCOUNTER 2024-10-24 04:23 | Day surgery (SDC) | payer OTHER ==
[~2024-10-24 04:23] MED LIST changes: +ACYC800 PO; +ATOVAQUONE750 MG/51 PO; +FOLI1 PO; +GRANISETRON HCL PO; +MIRT15 PO; +OLAN5 PO; +PREVYMIS480 MG PO; +PROGRAF PO; +PROGRAF0.510 PO; +SUCR1 PO; +beclomethasone
[2024-10-24 10:45] VITALS: BP 109/60
[2024-10-24 11:41] LABS: BASOPHILS ABSOLUTE AUTO 0.02 K/mm3 (0.00-0.23); BASOPHILS PERCENT AUTO 1 % (0-2); EOSINOPHILS ABSOLUTE AUTO 0.02 K/mm3 (0.00-0.68); EOSINOPHILS PERCENT AUTO 1 % (0-6); Hematocrit 30.1 % (33.0-51.0); Hemoglobin 10.6 g/dL (11.5-16.0); IMMATURE GRAN ABSOLUTE AUTO 0.03 K/mm3 (0.00-0.10); IMMATURE GRAN PERCENT AUTO 1 % (0-1); LYMPHOCYTES ABSOLUTE AUTO 0.30 K/mm3 (0.84-5.20); LYMPHOCYTES PERCENT AUTO 9 % (21-46); MONOCYTES ABSOLUTE AUTO 0.53 K/mm3 (0.16-1.47); MONOCYTES PERCENT AUTO 15 % (4-13); Mean Corpuscular HGB Conc 35.2 g/dL (31.5-36.5); Mean Corpuscular Volume 117 fL (80-100); NEUTROPHILS ABSOLUTE AUTO 2.57 K/mm3 (1.96-9.15); NEUTROPHILS PERCENT AUTO 74 % (41-73); NRBC ABSOLUTE 0.00 K/mm3 (0.00-0.02); NRBC Auto 0.0 /100 WBC (0.0-0.2); RDW Coefficient Variation 15.8 % (11.7-14.2); RDW Standard Deviation 68.1 fL (35.1-46.3)
[2024-10-24 11:51] LABS: Platelet Count 46 K/mm3 (150-400)
[2024-10-24 12:04] LABS: Alanine Aminotransfer (ALT/SGP 11.0 U/L (12-78); Albumin, Blood 3.0 g/dL (3.4-5.0); Albumin/Globulin Ratio 1.2 (0.8-1.8); Anion Gap 7.0 mmol/L (3-11); Aspartate Aminotrans (AST/SGOT 11.0 U/L (12-37); Bilirubin, Total 0.9 mg/dL (0.1-1.0); Blood Urea Nitrogen 13.0 mg/dL (8-24); CO2, Blood 28.0 mmol/L (21-32); Calcium, Blood 8.9 mg/dL (8.5-10.1); Chloride, Blood 108.0 mmol/L (98-108); Creatinine, Blood 0.66 mg/dL (0.40-1.00); Globulin, Blood 2.4 g/dL (2.2-4.0); Glucose, Blood 129.0 mg/dL (70-99); Lactate Dehydrogenase (Ld),Bld 216.0 U/L (100-240); Magnesium, Blood 1.8 mg/dL (1.6-2.4); Potassium, Blood 3.4 mmol/L (3.5-5.5); Sodium, Blood 140.0 mmol/L (136-145); Total Protein, Blood 5.4 g/dL (6.4-8.2)
[2024-10-26 10:06] LABS: TACROLIMUS BY HPLC-MS/MS 2.9 ng/mL
== END 2024-10-24 11:04 | disposition home or self-care (01) ==
LOC: ATC 04:23
PROVIDERS: Internal Medicine Hematology & Oncology
DX: C92.00 Acute myeloblastic leukemia, not having achieved remission (principal); D61.818 Other pancytopenia; I44.30 Unspecified atrioventricular block; I48.0 Paroxysmal atrial fibrillation; E78.5 Hyperlipidemia, unspecified; Z87.891 Personal history of nicotine dependence; Z88.1 Allergy status to other antibiotic agents; Z95.0 Presence of cardiac pacemaker
CPT/HCPCS: 36592; 80053; 80197; 83615; 83735; 85025

== ENCOUNTER 2024-11-01 11:39 | Day surgery (SDC) | payer OTHER ==
[2024-11-01 11:41] VITALS: BP 100/62
[2024-11-01 12:17] LABS: BASOPHILS ABSOLUTE AUTO 0.01 K/mm3 (0.00-0.23); BASOPHILS PERCENT AUTO 0 % (0-2); EOSINOPHILS ABSOLUTE AUTO 0.02 K/mm3 (0.00-0.68); EOSINOPHILS PERCENT AUTO 1 % (0-6); Hematocrit 28.8 % (33.0-51.0); Hemoglobin 10.1 g/dL (11.5-16.0); IMMATURE GRAN ABSOLUTE AUTO 0.02 K/mm3 (0.00-0.10); IMMATURE GRAN PERCENT AUTO 1 % (0-1); LYMPHOCYTES ABSOLUTE AUTO 0.25 K/mm3 (0.84-5.20); LYMPHOCYTES PERCENT AUTO 8 % (21-46); MONOCYTES ABSOLUTE AUTO 0.40 K/mm3 (0.16-1.47); MONOCYTES PERCENT AUTO 12 % (4-13); Mean Corpuscular HGB Conc 35.1 g/dL (31.5-36.5); Mean Corpuscular Volume 119 fL (80-100); NEUTROPHILS ABSOLUTE AUTO 2.55 K/mm3 (1.96-9.15); NEUTROPHILS PERCENT AUTO 79 % (41-73); NRBC ABSOLUTE 0.00 K/mm3 (0.00-0.02); NRBC Auto 0.0 /100 WBC (0.0-0.2); RDW Coefficient Variation 14.5 % (11.7-14.2); RDW Standard Deviation 62.5 fL (35.1-46.3)
[2024-11-01 12:26] LABS: Platelet Count 50 K/mm3 (150-400)
[2024-11-01 13:18] LABS: Alanine Aminotransfer (ALT/SGP 12.0 U/L (12-78); Albumin, Blood 2.8 g/dL (3.4-5.0); Albumin/Globulin Ratio 1.1 (0.8-1.8); Anion Gap 8.0 mmol/L (3-11); Aspartate Aminotrans (AST/SGOT 12.0 U/L (12-37); Bilirubin, Total 0.6 mg/dL (0.1-1.0); Blood Urea Nitrogen 14.0 mg/dL (8-24); CO2, Blood 27.0 mmol/L (21-32); Calcium, Blood 8.4 mg/dL (8.5-10.1); Chloride, Blood 107.0 mmol/L (98-108); Creatinine, Blood 0.64 mg/dL (0.40-1.00); Globulin, Blood 2.5 g/dL (2.2-4.0); Glucose, Blood 147.0 mg/dL (70-99); Lactate Dehydrogenase (Ld),Bld 194.0 U/L (100-240); Magnesium, Blood 1.9 mg/dL (1.6-2.4); Potassium, Blood 3.4 mmol/L (3.5-5.5); Sodium, Blood 139.0 mmol/L (136-145); Total Protein, Blood 5.3 g/dL (6.4-8.2)
[2024-11-03 01:50] LABS: TACROLIMUS BY HPLC-MS/MS 2.7 ng/mL
== END 2024-11-01 12:00 | disposition home or self-care (01) ==
LOC: ATC 11:39
PROVIDERS: Internal Medicine Hematology & Oncology
DX: C92.00 Acute myeloblastic leukemia, not having achieved remission (principal); D61.818 Other pancytopenia; I44.30 Unspecified atrioventricular block; I48.0 Paroxysmal atrial fibrillation; E78.5 Hyperlipidemia, unspecified; J30.1 Allergic rhinitis due to pollen; Z87.891 Personal history of nicotine dependence; Z79.899 Other long term (current) drug therapy; Z88.1 Allergy status to other antibiotic agents; Z95.0 Presence of cardiac pacemaker
CPT/HCPCS: 36592; 80053; 80197; 83615; 83735; 85025

== ENCOUNTER 2024-11-15 02:34 | Day surgery (SDC) | payer OTHER ==
[2024-11-15 11:45] VITALS: BP 111/64
[2024-11-15 12:24] LABS: BASOPHILS ABSOLUTE AUTO 0.03 K/mm3 (0.00-0.23); BASOPHILS PERCENT AUTO 1 % (0-2); EOSINOPHILS ABSOLUTE AUTO 0.04 K/mm3 (0.00-0.68); EOSINOPHILS PERCENT AUTO 1 % (0-6); Hematocrit 30.2 % (33.0-51.0); Hemoglobin 10.5 g/dL (11.5-16.0); IMMATURE GRAN ABSOLUTE AUTO 0.02 K/mm3 (0.00-0.10); IMMATURE GRAN PERCENT AUTO 1 % (0-1); LYMPHOCYTES ABSOLUTE AUTO 0.25 K/mm3 (0.84-5.20); LYMPHOCYTES PERCENT AUTO 7 % (21-46); MONOCYTES ABSOLUTE AUTO 0.41 K/mm3 (0.16-1.47); MONOCYTES PERCENT AUTO 11 % (4-13); Mean Corpuscular HGB Conc 34.8 g/dL (31.5-36.5); Mean Corpuscular Volume 116 fL (80-100); NEUTROPHILS ABSOLUTE AUTO 3.12 K/mm3 (1.96-9.15); NEUTROPHILS PERCENT AUTO 81 % (41-73); NRBC ABSOLUTE 0.00 K/mm3 (0.00-0.02); NRBC Auto 0.0 /100 WBC (0.0-0.2); Platelet Count 51 K/mm3 (150-400); RDW Coefficient Variation 13.5 % (11.7-14.2); RDW Standard Deviation 57.2 fL (35.1-46.3)
[2024-11-15 13:00] LABS: Alanine Aminotransfer (ALT/SGP 11.0 U/L (12-78); Albumin, Blood 3.2 g/dL (3.4-5.0); Albumin/Globulin Ratio 1.2 (0.8-1.8); Anion Gap 7.0 mmol/L (3-11); Aspartate Aminotrans (AST/SGOT 10.0 U/L (12-37); Bilirubin, Total 0.7 mg/dL (0.1-1.0); Blood Urea Nitrogen 10.0 mg/dL (8-24); CO2, Blood 29.0 mmol/L (21-32); Calcium, Blood 8.7 mg/dL (8.5-10.1); Chloride, Blood 107.0 mmol/L (98-108); Creatinine, Blood 0.69 mg/dL (0.40-1.00); Globulin, Blood 2.6 g/dL (2.2-4.0); Glucose, Blood 119.0 mg/dL (70-99); Lactate Dehydrogenase (Ld),Bld 194.0 U/L (100-240); Magnesium, Blood 1.7 mg/dL (1.6-2.4); Potassium, Blood 3.2 mmol/L (3.5-5.5); Sodium, Blood 140.0 mmol/L (136-145); Total Protein, Blood 5.8 g/dL (6.4-8.2)
[2024-11-17 10:42] LABS: TACROLIMUS BY HPLC-MS/MS <2.0 ng/mL
== END 2024-11-15 12:04 | disposition home or self-care (01) ==
LOC: ATC 02:34
PROVIDERS: Internal Medicine Hematology & Oncology
DX: C92.00 Acute myeloblastic leukemia, not having achieved remission (principal); D61.818 Other pancytopenia; I44.30 Unspecified atrioventricular block; I48.0 Paroxysmal atrial fibrillation; E78.5 Hyperlipidemia, unspecified; J30.1 Allergic rhinitis due to pollen; Z87.891 Personal history of nicotine dependence; Z79.899 Other long term (current) drug therapy; Z88.1 Allergy status to other antibiotic agents; Z95.0 Presence of cardiac pacemaker
CPT/HCPCS: 36592; 80053; 80197; 83615; 83735; 85025

== ENCOUNTER 2024-11-22 03:25 | Day surgery (SDC) | payer OTHER ==
[2024-11-22 11:38] VITALS: BP 124/64
[2024-11-22 12:19] LABS: BASOPHILS ABSOLUTE AUTO 0.02 K/mm3 (0.00-0.23); BASOPHILS PERCENT AUTO 1 % (0-2); EOSINOPHILS ABSOLUTE AUTO 0.02 K/mm3 (0.00-0.68); EOSINOPHILS PERCENT AUTO 1 % (0-6); Hematocrit 30.6 % (33.0-51.0); Hemoglobin 10.9 g/dL (11.5-16.0); IMMATURE GRAN ABSOLUTE AUTO 0.02 K/mm3 (0.00-0.10); IMMATURE GRAN PERCENT AUTO 1 % (0-1); LYMPHOCYTES ABSOLUTE AUTO 0.28 K/mm3 (0.84-5.20); LYMPHOCYTES PERCENT AUTO 7 % (21-46); MONOCYTES ABSOLUTE AUTO 0.44 K/mm3 (0.16-1.47); MONOCYTES PERCENT AUTO 12 % (4-13); Mean Corpuscular HGB Conc 35.6 g/dL (31.5-36.5); Mean Corpuscular Volume 116 fL (80-100); NEUTROPHILS ABSOLUTE AUTO 3.02 K/mm3 (1.96-9.15); NEUTROPHILS PERCENT AUTO 80 % (41-73); NRBC ABSOLUTE 0.00 K/mm3 (0.00-0.02); NRBC Auto 0.0 /100 WBC (0.0-0.2); RDW Coefficient Variation 13.6 % (11.7-14.2); RDW Standard Deviation 57.2 fL (35.1-46.3)
[2024-11-22 12:42] LABS: Platelet Count 50 K/mm3 (150-400)
[2024-11-22 12:46] LABS: Alanine Aminotransfer (ALT/SGP 11.0 U/L (12-78); Albumin, Blood 3.2 g/dL (3.4-5.0); Albumin/Globulin Ratio 1.2 (0.8-1.8); Anion Gap 9.0 mmol/L (3-11); Aspartate Aminotrans (AST/SGOT 10.0 U/L (12-37); Bilirubin, Total 0.6 mg/dL (0.1-1.0); Blood Urea Nitrogen 10.0 mg/dL (8-24); CO2, Blood 26.0 mmol/L (21-32); Calcium, Blood 8.9 mg/dL (8.5-10.1); Chloride, Blood 107.0 mmol/L (98-108); Creatinine, Blood 0.57 mg/dL (0.40-1.00); Globulin, Blood 2.6 g/dL (2.2-4.0); Glucose, Blood 150.0 mg/dL (70-99); Lactate Dehydrogenase (Ld),Bld 189.0 U/L (100-240); Magnesium, Blood 1.7 mg/dL (1.6-2.4); Potassium, Blood 3.2 mmol/L (3.5-5.5); Sodium, Blood 139.0 mmol/L (136-145); Total Protein, Blood 5.8 g/dL (6.4-8.2)
[2024-11-24 11:37] LABS: TACROLIMUS BY HPLC-MS/MS <2.0 ng/mL
== END 2024-11-22 11:58 | disposition home or self-care (01) ==
LOC: ATC 03:25
PROVIDERS: Internal Medicine Hematology & Oncology
DX: C92.00 Acute myeloblastic leukemia, not having achieved remission (principal); D61.818 Other pancytopenia; E78.5 Hyperlipidemia, unspecified; I48.0 Paroxysmal atrial fibrillation; Z95.0 Presence of cardiac pacemaker; Z87.891 Personal history of nicotine dependence; Z79.899 Other long term (current) drug therapy; Z88.1 Allergy status to other antibiotic agents; Z91.048 Other nonmedicinal substance allergy status
CPT/HCPCS: 36592; 80053; 80197; 83615; 83735; 85025

== ENCOUNTER 2024-11-29 00:43 | Day surgery (SDC) | payer OTHER ==
[2024-11-29 10:34] VITALS: BP 114/68
[2024-11-29 11:11] LABS: BASOPHILS ABSOLUTE AUTO 0.02 K/mm3 (0.00-0.23); BASOPHILS PERCENT AUTO 1 % (0-2); EOSINOPHILS ABSOLUTE AUTO 0.06 K/mm3 (0.00-0.68); EOSINOPHILS PERCENT AUTO 2 % (0-6); Hematocrit 31.6 % (33.0-51.0); Hemoglobin 11.0 g/dL (11.5-16.0); IMMATURE GRAN ABSOLUTE AUTO 0.02 K/mm3 (0.00-0.10); IMMATURE GRAN PERCENT AUTO 1 % (0-1); LYMPHOCYTES ABSOLUTE AUTO 0.35 K/mm3 (0.84-5.20); LYMPHOCYTES PERCENT AUTO 13 % (21-46); MONOCYTES ABSOLUTE AUTO 0.45 K/mm3 (0.16-1.47); MONOCYTES PERCENT AUTO 17 % (4-13); Mean Corpuscular HGB Conc 34.8 g/dL (31.5-36.5); Mean Corpuscular Volume 115 fL (80-100); NEUTROPHILS ABSOLUTE AUTO 1.80 K/mm3 (1.96-9.15); NEUTROPHILS PERCENT AUTO 67 % (41-73); NRBC ABSOLUTE 0.00 K/mm3 (0.00-0.02); NRBC Auto 0.0 /100 WBC (0.0-0.2); RDW Coefficient Variation 13.0 % (11.7-14.2); RDW Standard Deviation 54.9 fL (35.1-46.3)
[2024-11-29 11:19] LABS: Platelet Count 49 K/mm3 (150-400)
[2024-11-29 11:34] LABS: Alanine Aminotransfer (ALT/SGP 15.0 U/L (12-78); Albumin, Blood 3.4 g/dL (3.4-5.0); Albumin/Globulin Ratio 1.3 (0.8-1.8); Anion Gap 7.0 mmol/L (3-11); Aspartate Aminotrans (AST/SGOT 9.0 U/L (12-37); Bilirubin, Total 0.8 mg/dL (0.1-1.0); Blood Urea Nitrogen 11.0 mg/dL (8-24); CO2, Blood 29.0 mmol/L (21-32); Calcium, Blood 9.4 mg/dL (8.5-10.1); Chloride, Blood 106.0 mmol/L (98-108); Creatinine, Blood 0.6 mg/dL (0.40-1.00); Globulin, Blood 2.6 g/dL (2.2-4.0); Glucose, Blood 148.0 mg/dL (70-99); Lactate Dehydrogenase (Ld),Bld 189.0 U/L (100-240); Magnesium, Blood 1.9 mg/dL (1.6-2.4); Potassium, Blood 3.3 mmol/L (3.5-5.5); Sodium, Blood 139.0 mmol/L (136-145); Total Protein, Blood 6.0 g/dL (6.4-8.2)
[2024-12-01 12:45] LABS: TACROLIMUS BY HPLC-MS/MS <2.0 ng/mL
== END 2024-11-29 10:52 | disposition home or self-care (01) ==
LOC: ATC 00:43
PROVIDERS: Internal Medicine Hematology & Oncology
DX: C92.00 Acute myeloblastic leukemia, not having achieved remission (principal); D61.818 Other pancytopenia; I44.30 Unspecified atrioventricular block; I48.0 Paroxysmal atrial fibrillation; E78.5 Hyperlipidemia, unspecified; J30.1 Allergic rhinitis due to pollen; Z87.891 Personal history of nicotine dependence; Z79.899 Other long term (current) drug therapy; Z88.1 Allergy status to other antibiotic agents; Z95.0 Presence of cardiac pacemaker
CPT/HCPCS: 36592; 80053; 80197; 83615; 83735; 85025

== ENCOUNTER 2024-12-06 00:02 | Day surgery (SDC) | payer OTHER ==
[2024-12-06 10:32] VITALS: BP 126/61
[2024-12-06 10:55] LABS: BASOPHILS ABSOLUTE AUTO 0.02 K/mm3 (0.00-0.23); BASOPHILS PERCENT AUTO 1 % (0-2); EOSINOPHILS ABSOLUTE AUTO 0.03 K/mm3 (0.00-0.68); EOSINOPHILS PERCENT AUTO 1 % (0-6); Hematocrit 30.7 % (33.0-51.0); Hemoglobin 10.7 g/dL (11.5-16.0); Mean Corpuscular HGB Conc 34.9 g/dL (31.5-36.5); Mean Corpuscular Volume 113 fL (80-100); NRBC ABSOLUTE 0.00 K/mm3 (0.00-0.02); NRBC Auto 0.0 /100 WBC (0.0-0.2); RDW Coefficient Variation 13.5 % (11.7-14.2); RDW Standard Deviation 55.2 fL (35.1-46.3)
[2024-12-06 11:03] LABS: IMMATURE GRAN ABSOLUTE AUTO 0.01 K/mm3 (0.00-0.10); IMMATURE GRAN PERCENT AUTO 0 % (0-1); LYMPHOCYTES ABSOLUTE AUTO 0.44 K/mm3 (0.84-5.20); LYMPHOCYTES PERCENT AUTO 16 % (21-46); MONOCYTES ABSOLUTE AUTO 0.38 K/mm3 (0.16-1.47); MONOCYTES PERCENT AUTO 14 % (4-13); NEUTROPHILS ABSOLUTE AUTO 1.85 K/mm3 (1.96-9.15); NEUTROPHILS PERCENT AUTO 68 % (41-73)
[2024-12-06 11:05] LABS: Platelet Count 38 K/mm3 (150-400)
[2024-12-06 11:12] LABS: Alanine Aminotransfer (ALT/SGP 15.0 U/L (12-78); Albumin, Blood 3.2 g/dL (3.4-5.0); Albumin/Globulin Ratio 1.3 (0.8-1.8); Anion Gap 7.0 mmol/L (3-11); Aspartate Aminotrans (AST/SGOT 13.0 U/L (12-37); Bilirubin, Total 0.8 mg/dL (0.1-1.0); Blood Urea Nitrogen 14.0 mg/dL (8-24); CO2, Blood 28.0 mmol/L (21-32); Calcium, Blood 9.0 mg/dL (8.5-10.1); Chloride, Blood 106.0 mmol/L (98-108); Creatinine, Blood 0.63 mg/dL (0.40-1.00); Globulin, Blood 2.5 g/dL (2.2-4.0); Glucose, Blood 123.0 mg/dL (70-99); Lactate Dehydrogenase (Ld),Bld 210.0 U/L (100-240); Magnesium, Blood 1.7 mg/dL (1.6-2.4); Potassium, Blood 3.0 mmol/L (3.5-5.5); Sodium, Blood 138.0 mmol/L (136-145); Total Protein, Blood 5.7 g/dL (6.4-8.2)
[2024-12-08 15:49] LABS: TACROLIMUS BY HPLC-MS/MS <2.0 ng/mL
== END 2024-12-06 10:52 | disposition home or self-care (01) ==
LOC: ATC 00:02
PROVIDERS: Internal Medicine Hematology & Oncology
DX: C92.01 Acute myeloblastic leukemia, in remission (principal); D61.818 Other pancytopenia; Z95.0 Presence of cardiac pacemaker; I48.0 Paroxysmal atrial fibrillation; E78.5 Hyperlipidemia, unspecified; Z88.1 Allergy status to other antibiotic agents; Z91.048 Other nonmedicinal substance allergy status; Z87.891 Personal history of nicotine dependence
CPT/HCPCS: 36592; 80053; 80197; 83615; 83735; 85025

== ENCOUNTER 2024-12-13 00:06 | Day surgery (SDC) | payer OTHER ==
[2024-12-13 12:20] VITALS: BP 92/50
[2024-12-13 13:00] LABS: Hematocrit 29.0 % (33.0-51.0); Hemoglobin 9.9 g/dL (11.5-16.0); Mean Corpuscular HGB Conc 34.1 g/dL (31.5-36.5); Mean Corpuscular Volume 113 fL (80-100); NRBC ABSOLUTE 0.00 K/mm3 (0.00-0.02); NRBC Auto 0.0 /100 WBC (0.0-0.2); RDW Coefficient Variation 13.7 % (11.7-14.2); RDW Standard Deviation 57.0 fL (35.1-46.3)
[2024-12-13 13:10] LABS: Alanine Aminotransfer (ALT/SGP 18.0 U/L (12-78); Albumin, Blood 2.9 g/dL (3.4-5.0); Albumin/Globulin Ratio 1.2 (0.8-1.8); Anion Gap 7.0 mmol/L (3-11); Aspartate Aminotrans (AST/SGOT 20.0 U/L (12-37); Bilirubin, Total 1.0 mg/dL (0.1-1.0); Blood Urea Nitrogen 14.0 mg/dL (8-24); CO2, Blood 27.0 mmol/L (21-32); Calcium, Blood 8.8 mg/dL (8.5-10.1); Chloride, Blood 107.0 mmol/L (98-108); Creatinine, Blood 0.63 mg/dL (0.40-1.00); Globulin, Blood 2.5 g/dL (2.2-4.0); Glucose, Blood 146.0 mg/dL (70-99); Lactate Dehydrogenase (Ld),Bld 281.0 U/L (100-240); Magnesium, Blood 1.7 mg/dL (1.6-2.4); Potassium, Blood 3.1 mmol/L (3.5-5.5); Sodium, Blood 138.0 mmol/L (136-145); Total Protein, Blood 5.4 g/dL (6.4-8.2)
[2024-12-13 13:31] LABS: Platelet Count 28 K/mm3 (150-400)
[2024-12-13 13:57] LABS: BAND PERCENT MAN 9 % (0-8); BASOPHILS ABSOLUTE MAN 0.00 K/mm3 (0.00-0.23); BASOPHILS PERCENT MAN 0 % (0-2); EOSINOPHILS ABSOLUTE MAN 0.02 K/mm3 (0.00-0.68); EOSINOPHILS PERCENT MAN 1 % (0-6); LYMPHOCYTES ABSOLUTE MAN 0.86 K/mm3 (0.84-5.20); LYMPHOCYTES PERCENT MAN 29 % (21-46); MONOCYTES ABSOLUTE MAN 0.50 K/mm3 (0.16-1.47); MONOCYTES PERCENT MAN 17 % (4-13); NEUTROPHILS ABSOLUTE MAN 1.58 K/mm3 (1.96-9.15); SEG NEUTROPHILS PERCENT MAN 44 % (41-73)
[2024-12-15 09:00] LABS: TACROLIMUS BY HPLC-MS/MS <2.0 ng/mL
== END 2024-12-13 12:20 | disposition home or self-care (01) ==
LOC: ATC 00:06
PROVIDERS: Internal Medicine Hematology & Oncology
DX: C92.00 Acute myeloblastic leukemia, not having achieved remission (principal); D61.818 Other pancytopenia; I48.0 Paroxysmal atrial fibrillation; E78.5 Hyperlipidemia, unspecified; I44.30 Unspecified atrioventricular block; J30.1 Allergic rhinitis due to pollen; Z87.891 Personal history of nicotine dependence; Z79.899 Other long term (current) drug therapy; Z88.1 Allergy status to other antibiotic agents; Z94.84 Stem cells transplant status; Z95.0 Presence of cardiac pacemaker
CPT/HCPCS: 36592; 80053; 80197; 83615; 83735; 85025